=== PATIENT | female | born 1945 | race Caucasian/White ===

== ENCOUNTER 2018-09-06 09:09 | Inpatient (IN) | payer MEDICARE, OTHER ==
[~2018-09-06] VITALS: Ht 162.6 cm; Wt 53.6 kg
[2018-09-06] MEDS ORDERED: ALBUTEROL/IPRATROPIUM 2.5MG/0.5MG, 3 ML ONE (09:50)
[2018-09-06] MEDS ORDERED: SODIUM CHLORIDE FLUSH 10ML SYR IVF ONE (10:00)
[2018-09-06] MEDS ORDERED: ALBUTEROL/IPRATROPIUM 2.5MG/0.5MG, 3 ML NPPB PRN (10:00)
--- NOTE | 2018-09-06 10:06 | NUR ---
pt upright on gurney awake & more comfortable after RT Tx, responds approp to staff, NAD at this time, comfort measures provided, at BS, call light within reach.
[2018-09-06 10:08] LABS: BASOPHILS # (AUTO) 0.03 x10^3/uL (0-0.1); BASOPHILS % (AUTO) 0 % (0-1); EOSINOPHILS % (AUTO) 0 % (1-7); LYMPHOCYTES # (AUTO) 0.95 x10^3/uL (1-3.4); LYMPHOCYTES % (AUTO) 10 % (22-44); MD NO; MEAN CORPUSCULAR HEMOGLOBIN 24.8 pg (27.0-34.8); MEAN CORPUSCULAR HGB CONC 31.6 g/dL (32.4-35.8); MEAN CORPUSCULAR VOLUME 78.5 fL (80-100); MONOCYTES # (AUTO) 0.89 x10^3/uL (0.2-0.8); MONOCYTES % (AUTO) 9 % (2-9); NEUTROPHILS # (AUTO) 8.06 x10^3/uL (1.8-6.8); NEUTROPHILS % (AUTO) 81 % (42-75); PLATELET COUNT 388 x10^3/uL (130-400); RED BLOOD COUNT 6.06 x10^6/uL (3.82-5.3); RED CELL DISTRIBUTION WIDTH 15.1 % (9.6-15.2)
[2018-09-06 10:17] LABS: ANION GAP 8 mmol/L (5-15); CALCIUM 8.4 mg/dL (8.5-10.1); CHLORIDE 90 mmol/L (98-107)
[2018-09-06 10:24] LABS: ALANINE AMINOTRANSFERASE 30 U/L (12-78); ALKALINE PHOSPHATASE 69 U/L (45-117); BILIRUBIN,TOTAL 0.5 mg/dL (0.2-1.0); CREATININE 0.67 mg/dL (0.55-1.02)
[2018-09-06 10:29] LABS: TROPONIN I 0.282 ng/mL (0.000-0.045)
[2018-09-06] MEDS ORDERED: FUROSEMIDE 40 MG/4 ML IVP ONE (11:00)
--- NOTE | 2018-09-06 11:03 | NUR ---
pt to CT
--- NOTE | 2018-09-06 11:03 | NUR ---
pt remains upright on gurney awake & comfortable, responds approp to staff, NAD with suppl O2 in place, comfort measures provided, at BS, call light within reach.
[2018-09-06] MEDS ORDERED: OMNIPAQUE 350 MG/ML, 75ML BOTTLE ONE (11:19)
[2018-09-06] MEDS ORDERED: FUROSEMIDE 40 MG/4 ML ONE (11:36)
--- NOTE | 2018-09-06 11:40 | NUR ---
pt to CTA Addendum: 09/06/18 at 1212 by RUMA pt to IR
[2018-09-06] MEDS ORDERED: SODIUM CHLORIDE FLUSH 10ML SYR IVF PRN (12:30)
--- NOTE | 2018-09-06 12:39 | NUR ---
Pt to be admitted to card-tele, room 506. Report called to Marianna.
--- NOTE | 2018-09-06 12:52 | NUR ---
pt upright on gurney awake & comfortable, bed berrios provided prn, responds approp to staff, NAD with suppl O2 in place, comfort measures provided, call light within reach.
[2018-09-06 13:17] VITALS: BP 165/98
[2018-09-06] MEDS: ALBUTEROL/IPRATROPIUM 2.5MG/0.5MG, 3 ML NPPB SCH ×2 (14:51→19:30)
[2018-09-06] MEDS ORDERED: ACETAMINOPHEN 325 MG TABLET PO PRN (15:30)
[2018-09-06] MEDS ORDERED: LABETALOL 5MG/ML, 20ML IVPush PRN (15:30)
[2018-09-06] MEDS ORDERED: ASPIRIN 81 MG TABLET CHEW PO ONE (15:30)
[2018-09-06] MEDS ORDERED: HYDROcodone/APAP 5/325 TABLET PO PRN (15:30)
[2018-09-06] MEDS ORDERED: morphine SULFATE 10 MG/ML, 1ML IVPush PRN (15:30)
[2018-09-06] MEDS ORDERED: HEPARIN 5,000 UNITS/ML, 1ML SQ SCH (15:30)
[2018-09-06 15:57] LABS: MICROSCOPIC AUTO
[2018-09-06 15:59] LABS: CULTURE INDICATED? NO
[2018-09-06 17:19] LABS: OSMOLALITY,URINE 189 mOsm/kg (500-850)
[2018-09-06] MEDS: FUROSEMIDE 40 MG/4 ML IV SCH (17:21)
[2018-09-06] MEDS ORDERED: FLU VACCINE PER PHARMACY IM ONE (18:00)
[2018-09-06 18:22] LABS: ANION GAP 8 mmol/L (5-15); CALCIUM 8.5 mg/dL (8.5-10.1); CHLORIDE 91 mmol/L (98-107)
[2018-09-06 18:23] LABS: CREATININE 0.74 mg/dL (0.55-1.02)
[2018-09-06] MEDS ORDERED: OMNIPAQUE 350 MG/ML, 150 ML BOTTLE ONE (18:58)
[2018-09-06 19:11] VITALS: BP 110/68
[2018-09-06] MEDS: ATORVASTATIN 40 MG TABLET PO SCH (21:36)
[2018-09-06 21:43] LABS: TROPONIN I 0.312 ng/mL (0.000-0.045)
[2018-09-07 03:50] VITALS: BP 91/50
[2018-09-07 05:09] LABS: BASOPHILS # (AUTO) 0.03 x10^3/uL (0-0.1); BASOPHILS % (AUTO) 0 % (0-1); EOSINOPHILS # (AUTO) 0.02 x10^3/uL (0-0.4); EOSINOPHILS % (AUTO) 0 % (1-7); LYMPHOCYTES # (AUTO) 1.35 x10^3/uL (1-3.4); LYMPHOCYTES % (AUTO) 14 % (22-44); MD NO; MEAN CORPUSCULAR HEMOGLOBIN 25.2 pg (27.0-34.8); MEAN CORPUSCULAR HGB CONC 31.7 g/dL (32.4-35.8); MEAN CORPUSCULAR VOLUME 79.4 fL (80-100); MEAN PLATELET VOLUME 7.2 fL (7.4-10.4); MONOCYTES # (AUTO) 1.09 x10^3/uL (0.2-0.8); MONOCYTES % (AUTO) 12 % (2-9); NEUTROPHILS # (AUTO) 6.98 x10^3/uL (1.8-6.8); NEUTROPHILS % (AUTO) 74 % (42-75); PLATELET COUNT 340 x10^3/uL (130-400); RED BLOOD COUNT 5.41 x10^6/uL (3.82-5.3)
[2018-09-07 05:16] LABS: CHLORIDE 94 mmol/L (98-107)
[2018-09-07 05:35] LABS: ALANINE AMINOTRANSFERASE 23 U/L (12-78); ALBUMIN 2.3 g/dL (3.4-5.0); ALKALINE PHOSPHATASE 54 U/L (45-117); ANION GAP 7 mmol/L (5-15); BILIRUBIN,TOTAL 0.4 mg/dL (0.2-1.0); CALCIUM 7.7 mg/dL (8.5-10.1); CREATININE 0.71 mg/dL (0.55-1.02); TOTAL PROTEIN 5.4 g/dL (6.4-8.2)
[2018-09-07] MEDS: ALBUTEROL/IPRATROPIUM 2.5MG/0.5MG, 3 ML NPPB SCH (07:00)
[2018-09-07 07:10] VITALS: BP 107/67
[2018-09-07] MEDS: ASPIRIN 81 MG TABLET CHEW PO SCH (07:56)
[2018-09-07] MEDS: FUROSEMIDE 40 MG/4 ML IV SCH ×2 (07:56→16:44)
[2018-09-07] MEDS ORDERED: ALBUTEROL/IPRATROPIUM 2.5MG/0.5MG, 3 ML NPPB PRN (08:00)
[2018-09-07] MEDS ORDERED: MAGNESIUM SULFATE PMX 2GM/50ML 50 ML IV ONE (13:00)
[2018-09-07 13:38] VITALS: BP 118/58
[2018-09-07 16:14] VITALS: BP 102/58
[2018-09-07] MEDS: ATORVASTATIN 40 MG TABLET PO SCH (20:36)
[2018-09-07 21:09] VITALS: BP 101/65
[2018-09-08 01:23] VITALS: BP 104/62
[2018-09-08 04:55] LABS: BASOPHILS # (AUTO) 0.02 x10^3/uL (0-0.1); BASOPHILS % (AUTO) 0 % (0-1); EOSINOPHILS # (AUTO) 0.07 x10^3/uL (0-0.4); EOSINOPHILS % (AUTO) 1 % (1-7); LYMPHOCYTES # (AUTO) 0.98 x10^3/uL (1-3.4); LYMPHOCYTES % (AUTO) 11 % (22-44); MD NO; MEAN CORPUSCULAR HEMOGLOBIN 25.1 pg (27.0-34.8); MEAN CORPUSCULAR HGB CONC 31.7 g/dL (32.4-35.8); MONOCYTES # (AUTO) 0.74 x10^3/uL (0.2-0.8); MONOCYTES % (AUTO) 8 % (2-9); NEUTROPHILS # (AUTO) 7.17 x10^3/uL (1.8-6.8); NEUTROPHILS % (AUTO) 80 % (42-75); PLATELET COUNT 327 x10^3/uL (130-400); RED BLOOD COUNT 5.06 x10^6/uL (3.82-5.3); RED CELL DISTRIBUTION WIDTH 15.2 % (9.6-15.2)
[2018-09-08 05:02] LABS: ALANINE AMINOTRANSFERASE 22 U/L (12-78); ALBUMIN 2.4 g/dL (3.4-5.0); ANION GAP 3 mmol/L (5-15); CALCIUM 8.1 mg/dL (8.5-10.1); CHLORIDE 95 mmol/L (98-107); CREATININE 0.63 mg/dL (0.55-1.02)
[2018-09-08 05:05] LABS: ALKALINE PHOSPHATASE 58 U/L (45-117); BILIRUBIN,TOTAL 0.4 mg/dL (0.2-1.0); TOTAL PROTEIN 5.8 g/dL (6.4-8.2)
[2018-09-08 07:01] VITALS: BP 95/53
[2018-09-08] MEDS ORDERED: METOPROLOL TARTRATE 25 MG TABLET PO SCH ×2 (08:00→18:00)
[2018-09-08] MEDS: ASPIRIN 81 MG TABLET CHEW PO SCH (08:41)
[2018-09-08] MEDS ORDERED: FUROSEMIDE 40 MG/4 ML IV SCH (09:00)
[2018-09-08 10:04] VITALS: BP 127/69
[2018-09-08] MEDS: METOPROLOL TARTRATE 25 MG TABLET PO SCH ×2 (10:05→17:06)
[2018-09-08 12:24] VITALS: BP 105/58
[2018-09-08 17:05] VITALS: BP 94/49
[2018-09-08 19:47] VITALS: BP 103/59
[2018-09-08] MEDS: ATORVASTATIN 40 MG TABLET PO SCH (21:19)
[2018-09-09] MEDS ORDERED: MAGNESIUM SULFATE PMX 2GM/50ML 50 ML IV ONE (03:00)
[2018-09-09 03:09] VITALS: BP 105/58
[2018-09-09 05:12] LABS: BASOPHILS # (AUTO) 0.04 x10^3/uL (0-0.1); BASOPHILS % (AUTO) 1 % (0-1); EOSINOPHILS # (AUTO) 0.02 x10^3/uL (0-0.4); EOSINOPHILS % (AUTO) 0 % (1-7); LYMPHOCYTES # (AUTO) 1.07 x10^3/uL (1-3.4); LYMPHOCYTES % (AUTO) 11 % (22-44); MD NO; MEAN CORPUSCULAR HEMOGLOBIN 25.6 pg (27.0-34.8); MEAN CORPUSCULAR HGB CONC 31.8 g/dL (32.4-35.8); MEAN CORPUSCULAR VOLUME 80.6 fL (80-100); MEAN PLATELET VOLUME 6.9 fL (7.4-10.4); MONOCYTES # (AUTO) 1.13 x10^3/uL (0.2-0.8); MONOCYTES % (AUTO) 12 % (2-9); NEUTROPHILS # (AUTO) 7.25 x10^3/uL (1.8-6.8); NEUTROPHILS % (AUTO) 76 % (42-75); PLATELET COUNT 276 x10^3/uL (130-400); RED CELL DISTRIBUTION WIDTH 15.1 % (9.6-15.2)
[2018-09-09 05:24] LABS: ALBUMIN 2.4 g/dL (3.4-5.0); ANION GAP 2 mmol/L (5-15); CALCIUM 8.3 mg/dL (8.5-10.1); CHLORIDE 93 mmol/L (98-107)
[2018-09-09 05:28] LABS: ALANINE AMINOTRANSFERASE 20 U/L (12-78); ALKALINE PHOSPHATASE 57 U/L (45-117); BILIRUBIN,TOTAL 0.5 mg/dL (0.2-1.0); CREATININE 0.65 mg/dL (0.55-1.02); TOTAL PROTEIN 5.6 g/dL (6.4-8.2)
[2018-09-09] MEDS: METOPROLOL TARTRATE 25 MG TABLET PO SCH (06:00)
[2018-09-09 06:51] VITALS: BP 96/57
[2018-09-09] MEDS: ASPIRIN 81 MG TABLET CHEW PO SCH (08:01)
[2018-09-09] MEDS ORDERED: ATOR40TA78 PO (12:09)
[2018-09-09] MEDS ORDERED: METO25TA35 PO (12:09)
[2018-09-09] MEDS ORDERED: ACET250T2 PO (12:09)
[2018-09-09] MEDS ORDERED: ASPI-515 PO (12:09)
[2018-09-09 12:27] VITALS: BP 108/67
== END 2018-09-09 16:53 | disposition home or self-care (01) | DRG 291 ==
LOC: ED 10:45 → EDIP 12:02 → 5SO 13:07
PROVIDERS: ADMIT Internal Medicine; ATTEND Internal Medicine
PROC: 0W993ZZ Drainage of Right Pleural Cavity, Percutaneous Approach (ICD-10-PCS; principal; 2018-09-06)
DX: I50.21 Acute systolic (congestive) heart failure (principal); J96.01 Acute respiratory failure with hypoxia; E43 Unspecified severe protein-calorie malnutrition; I31.3 Pericardial effusion (noninflammatory); E87.1 Hypo-osmolality and hyponatremia; E87.3 Alkalosis; I48.92 Unspecified atrial flutter; J44.1 Chronic obstructive pulmonary disease with (acute) exacerbation; E83.42 Hypomagnesemia; I16.0 Hypertensive urgency; I50.82 Biventricular heart failure; Z85.43 Personal history of malignant neoplasm of ovary; Z87.891 Personal history of nicotine dependence; Z90.710 Acquired absence of both cervix and uterus
CPT/HCPCS: 32555; 36415; 36600; 71045; 71260; 74178; 80048; 80053; 81001; 82150; 82803; 82945; 83615; 83735; 83880; 83930; 83935; 83986; 84157; 84443; 84484; 85014; 85018; 85025; 86304; 87015; 87070; 87075; 87102; 87116; 87205; 87206; 88112; 89051; 90656; 93005; 93306; 94640; 96374; 99285; G0378; J1940; J7620; Q9967; J3475